=== PATIENT | male | born 1955 | race African-American/Black ===

== ENCOUNTER 2024-06-14 04:53 | Emergency (ER) | payer MEDICARE, SELFPAY ==
[2024-06-14 04:55] VITALS: BP 160/79; PULSE 89; RESP 19; TEMP 36.1; O2SAT 98; BMI 26.3
[2024-06-14 05:00] VITALS: O2SAT 98
--- NOTE | 2024-06-14 05:25 | CT_ITS ---
INDICATION: head trauma EXAMINATION: CT BRAIN - CT Head or Brain W/O Contrast Injection TECHNIQUE: Multiple axial images were obtained of the head without intravenous contrast. A radiation dose optimization technique was used for this scan. IV Contrast dosage and agent: None. COMPARISON: None FINDINGS: BRAIN PARENCHYMA: No intra- or extra-axial hemorrhage. No evidence of acute infarct. No intracranial mass or mass effect. Mild periventricular and subcortical white matter hypodense chronic small vessel white matter ischemic change. There is preservation of the diaz/white matter interface. Posterior fossa structures are unremarkable. CSF SPACES: Cerebral volume appropriate for age. No hydrocephalus. Basal cisterns are patent. CALVARIUM, SKULL BASE, PARANASAL SINUSES AND MASTOID AIR CELLS: No acute osseous finding. Mild scattered paransal sinus mucoperisteal thickening. Mastoid air cells are clear. ORBITS: Both globes, extraocular muscles, optic nerves and retrobulbar fat appear unremarkable. ASPECTS Score for Acute Strokes: 10 CT/Brain/Head without Contrast IMPRESSION: No CT evidence of acute intracranial hemorrhage or injury. Mild senescent changes Electronically Signed: Aniceto Elizondo MD at 6:30 EDT Reading Location ID and State: [facility] / [place] Tel , Service support ,
--- NOTE | 2024-06-14 05:26 | ED.VIS.FALL ---
HPI HPI - Fall History of Present Illness Chief Complaint: Fall Informant: EMS and SNF Occured/Mechanism Occurred: Today Mechanism/Context: Yes same level fall and Yes cannot recall fall Narrative Narrative: 69-year-old male history of Parkinson's and dementia. Reportedly had a fall at [facility] earlier this evening. And then may have had a seizure versus shaking. Patient does not recall incident. Cannot remember the fall. Currently there is no one else with him. 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 Depressed Chronic diastolic (congestive) heart failure Anemia Parkinson disease without dyskinesia Metabolic encephalopathy Dementia Anxiety Acute cystitis without hematuria Home Medications ?Medication ?Instructions ?Recorded ?Last Taken ?Type carbidopa 25 mg-levodopa 100 mg 1.5 tab PO TID 06/14/24 Unknown History tablet (Sinemet) cholecalciferol (vitamin D3) 25 3,000 unit PO DAILY 06/14/24 Unknown History mcg (1,000 unit) capsule midodrine 10 mg tablet 10 mg PO Q4H 06/14/24 Unknown History pimavanserin 34 mg capsule 34 mg PO DAILY 06/14/24 Unknown History rasagiline 1 mg tablet (Azilect) 1 mg PO DAILY 06/14/24 Unknown History rivastigmine tartrate 3 mg capsule 3 mg PO BID 06/14/24 Unknown History venlafaxine 75 mg capsule,extended 75 mg PO DAILY 06/14/24 Unknown History release 24 hr (Effexor XR) Allergy/AdvReac Type Severity Reaction Status Date / Time No Known Allergies Allergy Verified 06/14/24 05:00 Social History Smoking Status: Never smoker ROS ROS ED ROS Narrative Denies recent illness. Denies fever. Limited informant due to his dementia. Review of Systems ROS Unobtainable: due to mental status Constitutional Constitutional ED: Denies chills or fever(s) Eyes Eyes: Denies blurry vision ENT ENT ED: Denies ear pain Cardiovascular Cardiovascular: Denies chest pain Respiratory/Chest Respiratory/Chest: Denies cough Gastrointestinal Gastrointestinal: Denies abdominal pain, diarrhea, nausea or vomiting Genitourinary Genitourinary ED: Denies dysuria or hematuria Musculoskeletal Musculoskeletal: Denies arthralgias Integumentary Denies abscess Neurologic Neurologic: Reports headache(s) Psychiatric Psychiatric: Denies anxiety Endocrine Endocrinology: Denies polydipsia Hematologic/Lymphatic Hematologic/Lymphatic: Denies easy bleeding Allergic/Immunologic Allergic/Immunologic ED: Denies mouth swelling EXAM Physical Exam Narrative Exam Narrative: 61-year-old male vital signs stable afebrile. Pulse ox 98% room air no hypoxia. Patient is in no distress. No one present in the room. H EENT exam pupils round react light. Moist mucous membranes. No signs of trauma to his face or scalp. Nontender. No hematoma. No lacerations. Neck nontender. Lungs clear equal symmetrical bilaterally. Heart regular rhythm rate about 90 no murmur. Chest wall ribs nontender. Abdomen soft nontender. Pelvic girdle intact. No shortening or rotation either hip. Normal 5 of 5 yard hostler strength. Upper extremities are nontender. No deformity. Lower extremities are nontender. Normal flexion extension. Dorsi and plantarflexion intact. Neurologically he thinks he is in [facility]. He does answer questions and follow commands. He is demented and confused. Back nontender. Skin unremarkable. Const Vital Signs: 06/14/24 04:55 06/14/24 05:00 Temperature 97.0 F L Temperature Source Temporal Pulse Rate 89 Respiratory Rate 19 H Respiratory Effort Normal Non-Labored Blood Pressure 160/79 H Blood Pressure Mean 106 Pulse Ox 98 98 Oxygen Delivery Method Room Air Room Air Positive well nourished and well developed; Negative for cachectic, contractures or unkempt General Appearance ED: well developed and NAD; Negative for unkempt, cachectic or contractures Nutritional Appearance: Negative for cachectic HEENT Reports normocephalic atraumatic; Negative for trauma, contusion, hematoma or tenderness Eyes PERRL and EOMs intact bilaterally General Eye ED: Negative for pale conjunctiva or scleral icterus Neck full ROM, no lymphadenopathy and supple General: Negative for tenderness Chest Wall inspection of chest normal and palpation of chest normal Resp normal respiratory effort, no retractions and clear to auscultation bilaterally Effort and Inspection: Negative for pain with movement Auscultation: Negative for rales, rhonchi, wheezes, diminished lung sounds or other Cardio regular rate, regular rhythm, S1 normal heart sound, S2 normal heart sound and no murmurs Rate: Negative for bradycardia or tachycardic Rhythm: Negative for abnormal rhythm Bruits: Negative for other GI non-tender, non-distended and no masses Inspection: Negative for abdominal distention Auscultation: normoactive bowel sounds Palpation: soft; Negative for guarding or rebound tenderness present Back/Spine no CVA tenderness Cervical Spine: Negative for cervical spine tenderness Lumbar Spine / Lower Back: Negative for lumbar spinal tenderness or paraspinal muscle tenderness Neuro No oriented x3, CN's II-XII intact bilaterally, moves all extremities and no focal motor deficits Sensorium / Orientation: alert, oriented to person, orientation impaired and confused; Negative for oriented to place, oriented to time, lethargic or stuporous Motor Exam: strength 5/5 throughout Psych mental status grossly normal; Negative for thought process normal Appearance: Negative for unkempt Attitude: No agitated Mood & Affect: Negative for depressed, anxious or tearful Skin Lesions: no lesions Rashes: no rashes MDM MDM MDM Narrative Medical decision making narrative: 69-year-old male from a nursing Parkinson's disease. Reportedly fell may or may not of had a seizure. CAT scan of his brain and screening labs to be obtained. Repeat exam at 6:35 AM unchanged. Repeat temperature was 97 1. He is afebrile. I went over test results with patient. He will be discharged back to extended-care facility. History & Record Review Discussion w/independent historian: Patient Additional record(s) reviewed:: Prior inpatient record, Prior outpatient record, Prior ED visit, Prior labs and No prior records Lab Data Attestation: I reviewed the patient's lab results. Lab results narrative: CBC unremarkable. White count of 4.1. H&H 14 and 41. Platelets 255. Electrolytes shows sodium 139. Gap 6. Normal BUN and creatinine is 61. Glucose 97. Labs: Laboratory Results - last 24 hr 06/14/24 05:35 WBC 4.1 L RBC 5.02 Hgb 14.3 Hct 41.2 MCV 82.1 MCH 28.5 MCHC 34.7 RDW Std Deviation 39.8 RDW Coeff of Ira 13.6 Plt Count 255 MPV 12.8 H Immature Gran % (Auto) 0.500 Neut % (Auto) 48.5 Lymph % (Auto) 36.8 [place] % (Auto) 11.1 H Eos % (Auto) 2.9 Baso % (Auto) 0.2 Absolute Neuts (auto) 2.0 Absolute Lymphs (auto) 1.52 Nucleated RBC % 0 Sodium 139 Potassium 4.1 Chloride 106 Carbon Dioxide 27.0 Anion Gap 6 BUN 16 Creatinine 1.07 Estim Creat Clear Calc 78.97 Est GFR (MDRD) Af Amer 88 Est GFR (MDRD) Non-Af 73 BUN/Creatinine Ratio 15.0 Glucose 97 Calcium 9.6 Radiography Diagnostic Testing: Clinical Impression(s) from Imaging Studies Brain CT 06/14/24 05:25 IMPRESSION: No CT evidence of acute intracranial hemorrhage or injury. Mild senescent changes Electronically Signed: Aniceto Elizondo MD at 6:30 EDT , CAT scan of the brain without contrast read by the radiologist reviewed by me shows no acute abnormality. No bleed. No significant stroke. Discharge Plan Triage Chief Complaint: Fall ED Provider: Richardson Lucia Dx/Rx/DC Orders Clinical Impression: Fall, Seizure, History of Parkinson's disease Instructions: ED Fall with Uncertain Cause Prescriptions: No Action cholecalciferol (vitamin D3) 25 mcg (1,000 unit) capsule 3,000 unit PO DAILY midodrine 10 mg tablet 10 mg PO Q4H Rx Instructions: do not exceed 3 doses per 24 hrs pimavanserin 34 mg capsule 34 mg PO DAILY rasagiline [Azilect] 1 mg tablet 1 mg PO DAILY rivastigmine tartrate 3 mg capsule 3 mg PO BID carbidopa-levodopa [Sinemet] 25-100 mg tablet 1.5 tab PO TID venlafaxine [Effexor XR] 75 mg capsule,extended release 24hr 75 mg PO DAILY Primary Care Provider: Iza Tyler Referrals: Iza Tyler MD [Primary Care Provider] - As soon as possible Activity Restrictions/Additional Instructions: CAT scan labs today were unremarkable. Watch for further seizures. Follow-up with his primary care physician or your medical assistant per diem for further evaluation. Print Language: Korean Disposition Disposition: Home, Self Care
[2024-06-14 05:40] LABS: Absolute Lymphocyte Count 1.52 X10^3/uL (0.83-4.51); Basophil# 0.01 X10^3/uL; Basophil% 0.2 % (0-1); Eosinophil# 0.12 X10^3/uL; Eosinophils% 2.9 % (0-5); Hematocrit 41.2 % (40-54); Hemoglobin 14.3 g/dL (13.0-16.5); Lymphocyte # 1.52 X10^3/ul (0.83-4.51); Lymphocyte % 36.8 % (19-41); Mean Corp Hgb Conc 34.7 g/dL (32-36); Mean Corpuscular Hgb 28.5 pg (27.0-32.0); Mean Corpuscular Volume 82.1 fL (80-94); Mean Platelet Vol. 12.8 fl (6.2-12.0); Monocyte# 0.46 X10^3/uL; Monocyte% 11.1 % (0-10); NRBC Flagged by Analyzer 0 % (0-5); Neutrophil % 48.5 % (47-70); Platelet Count 255 K/mm3 (150-450); RBC Distribution Width CV 13.6 % (11.6-14.6); RBC Distribution Width SD 39.8 fl (35.1-43.9); Red Blood Count 5.02 M/mm3 (4.6-6.2); White Blood Count 4.1 K/mm3 (4.4-11.0)
[2024-06-14 05:53] LABS: Anion Gap 6 (5-15); BUN 16 mg/dL (7-18); Calcium,Total 9.6 mg/dL (8.5-10.1); Chloride 106 mmol/L (98-107); Creatinine, Serum 1.07 mg/dL (0.70-1.30); EST Glomerular Filtration Rate 73 mL/min (>60); Est Glom Filt Rate - Afr Amer 88 mL/min (>60); Estimated Creatinine Clearance 78.97 ml/min; Glucose 97 mg/dL (74-106); Potassium 4.1 mmol/L (3.5-5.1); Sodium Level 139 mmol/L (136-145)
[2024-06-14 06:55] VITALS: PULSE 65
[2024-06-14 07:06] VITALS: BP 116/64; PULSE 67; RESP 18; TEMP 36.1; O2SAT 99
--- NOTE | 2024-06-14 07:10 | ED.RN ---
report given to Kaitlin at [facility]
[2024-06-14 08:00] VITALS: BP 125/77; PULSE 78; RESP 16; O2SAT 98
== END 2024-06-14 08:49 | disposition home or self-care (01) ==
PROVIDERS: Emergency Provider Emergency Medicine; PCP Internal Medicine; Visit Provider Emergency Medicine
DX: R56.9 Unspecified convulsions (principal); G20.A1 Parkinson's disease without dyskinesia, without mention of fluctuations; I50.32 Chronic diastolic (congestive) heart failure; F02.80 Dementia in other diseases classified elsewhere, unspecified severity, without behavioral disturbance, psychotic disturbance, mood disturbance, and anxiety; W19.XXXA Unspecified fall, initial encounter; Y92.89 Other specified places as the place of occurrence of the external cause; Z79.899 Other long term (current) drug therapy; F41.9 Anxiety disorder, unspecified
CPT/HCPCS: 70450; 80048; 85025; 99283; A4216